=== PATIENT | male | born 1955 | race American Indian/Alaskan Native ===

== ENCOUNTER 2017-11-11 23:06 | Emergency (ER) | payer SELFPAY ==
[2017-11-11 23:23] VITALS: BP 122/72
[2017-11-12 00:13] LABS: Basophils # (Auto) 0.1 K/mm3 (0.0-0.1); Basophils % (Auto) 1.4 % (0.0-1.8); Eosinophils # (Auto) 0.3 K/mm3 (0.0-0.4); Eosinophils % (Auto) 3.6 % (0.0-4.3); Hemoglobin 14.1 gm/dl (11.8-15.2); Lymphocytes # (Auto) 3.5 K/mm3 (1.2-5.4); Lymphocytes % (Auto) 39.6 % (13.4-35.0); Mean Corpuscular HGB Conc 34 % (32-34); Mean Corpuscular Hemoglobin 28 pg (28-32); Mean Corpuscular Volume 83 fl (84-94); Monocytes # (Auto) 1.2 K/mm3 (0.0-0.8); Monocytes % (Auto) 13.2 % (0.0-7.3); Platelet Count 171 K/mm3 (140-440); Red Blood Count 5.06 M/mm3 (3.65-5.03); Red Cell Distribution Width 15.3 % (13.2-15.2)
[2017-11-12 00:42] LABS: BUN/Creatinine Ratio 20; Blood Urea Nitrogen 16 mg/dL (9-20); Calcium 9.5 mg/dL (8.4-10.2); Hemolysis Index 54
[2017-11-12] MEDS ORDERED: ZOFRAN ODT PO ONE (01:02)
--- NOTE | 2017-11-12 01:08 | Cat Scan Report ---
FINAL REPORT PROCEDURE: CT HEAD/BRAIN WO CON TECHNIQUE: Computerized tomography of the head was performed without contrast material. HISTORY: altered mental status COMPARISON: No prior studies are available for comparison. FINDINGS: Skull and scalp: Normal. Paranasal sinuses: Normal. Ventricles and subarachnoid spaces: Normal. Cerebrum: There is no evidence of acute intracranial hemorrhage, hematoma or infarction. No midline displacement. Small area of encephalomalacia in the posterior right frontal lobe.. Cerebellum and brainstem: No evidence of hemorrhage, acute infarction or mass. Vasculature: Normal. Comments: None. IMPRESSION: There is no evidence of an acute intracranial process. Small old area of encephalomalacia in the posterior right frontal lobe may represent sequelae from old infarction or trauma.
--- NOTE | 2017-11-12 04:31 | Emergency Department Report ---
HPI - General Chief Complaint: Altered Mental Status Time Seen by Provider: 11/12/17 00:43 - HPI HPI: 62-year-old male presents to the emergency department from triage with a complaint of having a fall earlier today. The patient says that he went to 2 or 3 different family parties or events and at the last one, this evening, the patient slipped and fell. He does complain of having some dizziness. He denies any vision change, slurred speech, chest pain, shortness of breath. He says that he took some ibuprofen for his symptoms with some relief. He has a past medical history of CHF, diabetes. The patient presents with a suitcase and a briefcase. Patient appears to have some history of bipolar disorder. The patient is awake and alert, oriented, AAO 3. The patient consistently appears to have a changing story about where he lives, which family members are really in the [place] area, and his plans for after he is in the hospital. ED Past Medical Hx - Past Medical History Previous Medical History?: Yes Hx Congestive Heart Failure: Yes Hx Diabetes: Yes - Surgical History Hx Appendectomy: Yes - Social History Smoking Status: Never Smoker Substance Use Type: None, Alcohol ED Review of Systems ROS: Stated complaint: DETOX Other details as noted in HPI Comment: All other systems reviewed and negative Constitutional: denies: chills, fever Eyes: denies: eye pain, eye discharge, vision change ENT: denies: ear pain, throat pain Respiratory: denies: cough, shortness of breath, wheezing Cardiovascular: denies: chest pain, palpitations Gastrointestinal: denies: abdominal pain, nausea, diarrhea Genitourinary: denies: urgency, dysuria Musculoskeletal: denies: back pain, joint swelling, arthralgia Skin: denies: rash, lesions Neurological: headache, other (dizziness) Physical Exam - Physical Exam Vital Signs: Vital Signs 11/11/17 23:12 Temperature 98.5 F Pulse Rate 93 H Respiratory 16 Rate Blood Pressure 122/72 O2 Sat by Pulse 95 Oximetry Physical Exam: GENERAL: The patient is well-developed well-nourished. HENT: Normocephalic. Atraumatic. Patient has moist mucous membranes. EYES: Extraocular motions are intact. Pupils equal reactive to light bilaterally. No nystagmus. NECK: Supple. Trachea is midline. CHEST/LUNGS: Clear to auscultation. There is no respiratory distress noted. HEART/CARDIOVASCULAR: Regular. There is no tachycardia. There is no murmur. ABDOMEN: Abdomen is soft, nontender. Patient has normal bowel sounds. There is no abdominal distention. SKIN: Skin is warm and dry. NEURO: The patient is awake, alert, and oriented. The patient is cooperative. The patient has no focal neurologic deficits. The patient has normal speech and gait. Cranial nerves II through XII grossly intact. No dysmetria. No pronator drift. No facial asymmetry. MUSCULOSKELETAL: There is no tenderness or deformity. There is no limitation range of motion. There is no evidence of acute injury. ED Course Vital Signs 11/11/17 23:12 Temperature 98.5 F Pulse Rate 93 H Respiratory 16 Rate Blood Pressure 122/72 O2 Sat by Pulse 95 Oximetry ED Medical Decision Making - Lab Data Result diagrams: 11/11/17 23:33 11/11/17 23:33 - Radiology Data Radiology results: report reviewed PROCEDURE: CT HEAD/BRAIN WO CON TECHNIQUE: Computerized tomography of the head was performed without contrast material. HISTORY: altered mental status COMPARISON: No prior studies are available for comparison. FINDINGS: Skull and scalp: Normal. Paranasal sinuses: Normal. Ventricles and subarachnoid spaces: Normal. Cerebrum: There is no evidence of acute intracranial hemorrhage, hematoma or infarction. No midline displacement. Small area of encephalomalacia in the posterior right frontal lobe.. Cerebellum and brainstem: No evidence of hemorrhage, acute infarction or mass. Vasculature: Normal. Comments: None. IMPRESSION: There is no evidence of an acute intracranial process. Small old area of encephalomalacia in the posterior right frontal lobe may represent sequelae from old infarction or trauma. Transcribed By: [facility] Dictated By: DELIO VALLEJO MD Electronically Authenticated By: DELIO VALLEJO MD Signed Date/Time: 11/12/17 0107 - Medical Decision Making Patient originally came in with complaint of a fall, some dizziness and a headache. On physical exam he does not have any focal, motor or sensory deficits and his cranial nerves are intact. CT scan of the head does show signs of an old stroke, which he admits to having, but otherwise no acute intracranial process at this time. Rest of the patient's labs thus far have been unremarkable. The patient did refuse to have an EKG, leave urine, get into a gown and be placed on a monitor. He arrived with a suitcase and proceeded to take out all of his clothing and slowly and neatly folded and repack suitcase. The patient is awake, alert and oriented and able to answer most questions appropriately. Sometimes he is dismissive or sarcastic but mostly able to answer the questions appropriately. Some of the things the patient says may very well be true or could be delusions. The patient was seen by the psych dry paste supervisor, Harry, who does not feel that the patient is a candidate to be admitted 1013 or for involuntary psychiatric treatment. The patient does deny any suicidal or homicidal ideations or any hallucinations. He appears able to take care of ADLs. Patient ended up signing out AGAINST MEDICAL ADVICE but understands he can return if he changed his mind and wants to continue the full evaluation or with any acute distress. - Differential Diagnosis CVA, TIA, brain bleed, electrolyte abnormalities, bipolar disorder Critical Care Time: No Critical care attestation.: If time is entered above; I have spent that time in minutes in the direct care of this critically ill patient, excluding procedure time. ED Disposition Clinical Impression: Dizziness Fall Qualifiers: Encounter type: initial encounter Qualified Code(s): W19.XXXA - Unspecified fall, initial encounter Headache Qualifiers: Headache type: unspecified Headache chronicity pattern: unspecified pattern Intractability: not intractable Qualified Code(s): R51 - Headache Disposition: DC-07 LEFT AGAINST MED ADVICE Is pt being admited?: No Condition: Stable Referrals: PRIMARY CARE, [Primary Care Provider] - 3-5 Days Time of Disposition: 04:36
== END 2017-11-12 02:49 | disposition left against medical advice (07) ==
LOC: ED 23:06
DX: R42 Dizziness and giddiness (principal); R51 Headache; I50.9 Heart failure, unspecified; E11.9 Type 2 diabetes mellitus without complications; Z79.899 Other long term (current) drug therapy; Z90.89 Acquired absence of other organs; Z88.8 Allergy status to other drugs, medicaments and biological substances; Z88.0 Allergy status to penicillin; W19.XXXA Unspecified fall, initial encounter; Y93.89 Activity, other specified; Y92.89 Other specified places as the place of occurrence of the external cause; Y99.8 Other external cause status
CPT/HCPCS: 36415; 70450; 80048; 82962; 84443; 84484; 85025; 99284; G0480; 80320

== ENCOUNTER 2017-11-12 07:01 | Emergency (ER) | payer SELFPAY ==
[2017-11-12 07:41] VITALS: BP 123/86
[2017-11-12 08:13] LABS: Amphetamine Screen,Urine PRESUMPTIVE NEGATIVE; Cannabinoid Screen,Urine PRESUMPTIVE NEGATIVE; Cocaine Screen,Urine PRESUMPTIVE NEGATIVE; Methadone Screen,Urine PRESUMPTIVE NEGATIVE; Opiate Screen,Urine PRESUMPTIVE NEGATIVE
[2017-11-12 08:18] LABS: Basophils # (Auto) 0.1 K/mm3 (0.0-0.1); Basophils % (Auto) 1.4 % (0.0-1.8); Eosinophils # (Auto) 0.3 K/mm3 (0.0-0.4); Eosinophils % (Auto) 4.2 % (0.0-4.3); Hematocrit 42.6 % (35.5-45.6); Hemoglobin 14.3 gm/dl (11.8-15.2); Lymphocytes # (Auto) 2.9 K/mm3 (1.2-5.4); Lymphocytes % (Auto) 35.9 % (13.4-35.0); Mean Corpuscular HGB Conc 34 % (32-34); Mean Corpuscular Hemoglobin 28 pg (28-32); Mean Corpuscular Volume 83 fl (84-94); Monocytes % (Auto) 12.9 % (0.0-7.3); Platelet Count 167 K/mm3 (140-440); Red Blood Count 5.15 M/mm3 (3.65-5.03); Red Cell Distribution Width 15.3 % (13.2-15.2)
[2017-11-12 08:24] LABS: Benzodiazepines Screen,Urine PRESUMPTIVE POSITIVE
[2017-11-12 08:37] LABS: Bacteria,Urine 1+ /HPF (Negative); Bilirubin,Urine NEG (Negative); Blood,Urine NEG (Negative); Color,Urine Yellow (Yellow); Hyaline Casts,Urine 18 /LPF; Mucus,Urine FEW /HPF; Protein,Urine <15 mg/dL mg/dL (Negative); Urobilinogen,Urine < 2.0 mg/dL (<2.0)
[2017-11-12 08:39] LABS: BUN/Creatinine Ratio 19; Blood Urea Nitrogen 15 mg/dL (9-20); Calcium 9.5 mg/dL (8.4-10.2); Hemolysis Index 18
== END 2017-11-12 09:50 | disposition left against medical advice (07) ==
LOC: ED 07:01
DX: F32.9 Major depressive disorder, single episode, unspecified (principal); Z79.899 Other long term (current) drug therapy; Z53.21 Procedure and treatment not carried out due to patient leaving prior to being seen by health care provider
CPT/HCPCS: 36415; 80048; 80307; 81001; 85025; G0480; 80320